=== PATIENT | female | born 1975 | race Caucasian/White ===

== ENCOUNTER 2017-12-10 20:50 | Emergency (ER) | payer OTHER ==
[~2017-12-10] VITALS: Ht 165.1 cm; Wt 108.9 kg
== END 2017-12-10 23:58 | disposition home or self-care (01) ==
LOC: ER 20:50
DX: M75.51 Bursitis of right shoulder (principal); M79.89 Other specified soft tissue disorders

== ENCOUNTER 2018-09-01 21:20 | Emergency (ER) | payer OTHER ==
[~2018-09-01] VITALS: Ht 165.1 cm; Wt 117.9 kg
[~2018-09-01 21:20] MED LIST: COZAAR25 MG; METFORMIN HCL500 MG PO; TRANDATE200 MG PO
[2018-09-01] MEDS ORDERED: LOSARTAN POTASS50 MG (21:40)
[2018-09-02] MEDS ORDERED: ZOFRAN8 MG PO (03:49)
[2018-09-02] MEDS ORDERED: LEVSIN/SL0.125 MG SL (03:49)
[2018-09-02] MEDS ORDERED: ZANTAC300 MG PO (03:50)
== END 2018-09-02 04:00 | disposition home or self-care (01) ==
LOC: ER 21:20
DX: K80.20 Calculus of gallbladder without cholecystitis without obstruction (principal)

== ENCOUNTER → 2019-11-12 | Outpatient (CLI) | payer OTHER ==
[~2019-11-12] MED LIST changes: +LEVSIN/SL0.125 MG SL; +LOSARTAN POTASS50 MG; +ZANTAC300 MG PO; +ZOFRAN8 MG PO
== END | disposition home or self-care (01) ==
LOC: RAD 13:48
PROVIDERS: ATTEND Orthopaedic Surgery
DX: M25.571 Pain in right ankle and joints of right foot (principal); M25.531 Pain in right wrist; M54.2 Cervicalgia